=== PATIENT | female | born 1985 | race Caucasian/White ===

== ENCOUNTER 2020-11-27 04:52 | Inpatient (IN) | payer OTHER, SELFPAY ==
[2020-11-27] VITALS (74 sets, daily range): BP systolic 55–133; BP diastolic 36–90; PULSE 57–111; RESP 16–17; TEMP 36.7–37.6; O2SAT 95–100; BMI 46.1
[2020-11-27] MEDS: LACTATED RINGERS 1,000 ML 125 ML IV CONT ×3 (05:45→12:05)
[2020-11-27] MEDS: OXYTOCIN 30 UNITS/NS 500 ML 30 UNITS/500 ML BAG IV CONT (05:45)
--- NOTE | 2020-11-27 05:49 | LDADM ---
This patient, Tressa Vivar, was admitted to Labor/Delivery/Recovery 108 on 11/27/20 at 04:52. Plans for labor, pain management and were discussed with patient. Patient/family oriented to hospital policies and general routines including ID bracelet, bed and alarms, visiting hours, pain management, procedures, bathroom and other care routines, personal items, smoking policy, room service/diet and guest tray routines, security routines, and visiting hours. Patient/Family are encouraged to report perceived risks to care and to ask questions if they do not understand what they are told or what they should do. See OBIX for further documentation.
[2020-11-27 06:00] LABS: Basophils Percent Auto 0.2 % (0.2-1.2); Eosinophils Absolute Auto 0.1 K/mm3 (0-0.3); Eosinophils Percent Auto 0.6 % (0-4.4); Hemoglobin 11.5 g/dL (12.0-15.0); Immature Granulocyte Absolute 0.13 K/mm3 (0.00-0.031); Immature Granulocyte Percent A 1.2 % (0-0.5); Lymphocytes Absolute Auto 1.68 K/mm3 (0.9-3.2); Lymphocytes Percent Auto 15.2 % (18.3-44.2); Mean Corpuscular HGB Conc 32.9 g/dl (32-36); Mean Corpuscular Hemoglobin 27.8 pg (26-34); Mean Corpuscular Volume 84.5 fl (80-100); Mean Platelet Volume 8.9 fl (7.4-10.4); Monocytes Absolute Auto 0.5 K/mm3 (0.1-0.6); Monocytes Percent Auto 4.6 % (2.6-8.5); Neutrophils Absolute Auto 8.6 K/mm3 (1.3-6.7); Neutrophils Percent Auto 78.2 % (45.5-73.1); Platelet Count Result 226 k/mm3 (150-375); Red Blood Count 4.14 M/mm3 (4.2-5.4); Red Cell Distribution Width 13.4 % (11.5-14.5)
--- NOTE | 2020-11-27 07:21 | WPDANESEPP ---
Anes - Eval Pre Procedure Procedure: Labor epidural Date/Time: 11/27/20 07:21 Surgeon: Diamond Preop Diagnosis: pain during labor Pre Op Diagnosis: Induction of Labor Patient Data Age: 35 Gender: F Height: 1.63 m Weight: 122 kg Last Vital Signs Temp 36.9 C 11/27/20 05:45 Pulse 73 11/27/20 07:00 BP 117/65 11/27/20 07:00 Allergies Allergy/AdvReac Type Severity Reaction Status Date / Time No Known Allergies Allergy Unverified 05/28/19 13:13 Home Medications Medication Instructions Recorded Confirmed Type PNV cmb#95-ferrous fumarate-FA 1 tablet PO DAILY 11/02/20 11/27/20 History [] ergocalciferol (vitamin D2) 1,250 mcg PO WEEKLY 11/02/20 11/27/20 History [Vitamin D2] Laboratory Tests 11/27/20 11/27/20 05:33 05:33 WBC 11.0 K/mm3 H K/mm3 (4.5-10.0) RBC 4.14 M/mm3 L M/mm3 (4.2-5.4) Hgb 11.5 g/dL L g/dL (12.0-15.0) Hct 35.0 % L % (37.0-47.0) MCV 84.5 fl fl (80-100) MCH 27.8 pg pg (26-34) MCHC 32.9 g/dl g/dl (32-36) RDW 13.4 % % (11.5-14.5) Plt Count 226 k/mm3 k/mm3 (150-375) MPV 8.9 fl fl (7.4-10.4) Immature Gran % (Auto) 1.2 % H % (0-0.5) Neut % (Auto) 78.2 % H % (45.5-73.1) Lymph % (Auto) 15.2 % L % (18.3-44.2) [place] % (Auto) 4.6 % % (2.6-8.5) Eos % (Auto) 0.6 % % (0-4.4) Baso % (Auto) 0.2 % % (0.2-1.2) Lymph # (Auto) 1.68 K/mm3 K/mm3 (0.9-3.2) [place] # (Auto) 0.5 K/mm3 K/mm3 (0.1-0.6) Eos # (Auto) 0.1 K/mm3 K/mm3 (0-0.3) Baso # (Auto) 0.0 K/mm3 K/mm3 (0.0-0.1) Abs Immat Gran (auto) 0.13 K/mm3 H K/mm3 (0.00-0.031) Absolute Neuts (auto) 8.6 K/mm3 H K/mm3 (1.3-6.7) Absolute Nucleated RBC 0.0 K/mm3 K/mm3 (0.0-0.012) Nucleated RBC % 0.0 % % (0.0-0.2) RPR Pending Patient hx anesthesia problems: none Family hx anesthesia problems: none PMFSH Past Medical History Medical History (Updated 11/27/20 @ 07:22 by Zoraida Mercer CRNA) IUP (intrauterine ), incidental Morbid obesity with BMI of 45.0-49.9, adult Family History Family History (Updated 11/02/20 @ 12:38 by Paris Corado RN) Father Cancer Sibling Diabetes type I Social History Social History Smoking status: Never smoker Substance use: never Gender identity (if verbalized by the patient): Female Spiritual care concerns: No Exam Day of Procedure 11/27/20 07:21
--- NOTE | 2020-11-27 10:41 | WPDOBADMIT ---
Obstetrics - Admit Note Admission Note: AROM clear fluid 3//-2 clear fluid. record reviewed. No pertinent additions to the history and/or any subsequent changes in the physical findings that are not consistent with the expected course of the were found. Additions to the history and/or subsequent changes in the physical findings follow. None.
--- NOTE | 2020-11-27 11:42 | WPDANESEPP ---
Anes - Eval Pre Procedure Procedure: labor pain Date/Time: 11/27/20 11:42 Surgeon: santiago Preop Diagnosis: labor pain Pre Op Diagnosis: Induction of Labor Patient Data Age: 35 Gender: F Height: 5 ft 4 in Weight: 122 kg Last Vital Signs Temp 36.9 C 11/27/20 07:30 Pulse 70 11/27/20 11:41 BP 96/50 L 11/27/20 11:41 Pulse Ox 100 11/27/20 11:42 Allergies Allergy/AdvReac Type Severity Reaction Status Date / Time No Known Allergies Allergy Unverified 05/28/19 13:13 Home Medications Medication Instructions Recorded Confirmed Type PNV cmb#95-ferrous fumarate-FA 1 tablet PO DAILY 11/02/20 11/27/20 History [] ergocalciferol (vitamin D2) 1,250 mcg PO WEEKLY 11/02/20 11/27/20 History [Vitamin D2] Laboratory Tests 11/27/20 11/27/20 11/27/20 05:33 05:33 05:33 WBC 11.0 K/mm3 H K/mm3 (4.5-10.0) RBC 4.14 M/mm3 L M/mm3 (4.2-5.4) Hgb 11.5 g/dL L g/dL (12.0-15.0) Hct 35.0 % L % (37.0-47.0) MCV 84.5 fl fl (80-100) MCH 27.8 pg pg (26-34) MCHC 32.9 g/dl g/dl (32-36) RDW 13.4 % % (11.5-14.5) Plt Count 226 k/mm3 k/mm3 (150-375) MPV 8.9 fl fl (7.4-10.4) Immature Gran % (Auto) 1.2 % H % (0-0.5) Neut % (Auto) 78.2 % H % (45.5-73.1) Lymph % (Auto) 15.2 % L % (18.3-44.2) [place] % (Auto) 4.6 % % (2.6-8.5) Eos % (Auto) 0.6 % % (0-4.4) Baso % (Auto) 0.2 % % (0.2-1.2) Lymph # (Auto) 1.68 K/mm3 K/mm3 (0.9-3.2) [place] # (Auto) 0.5 K/mm3 K/mm3 (0.1-0.6) Eos # (Auto) 0.1 K/mm3 K/mm3 (0-0.3) Baso # (Auto) 0.0 K/mm3 K/mm3 (0.0-0.1) Abs Immat Gran (auto) 0.13 K/mm3 H K/mm3 (0.00-0.031) Absolute Neuts (auto) 8.6 K/mm3 H K/mm3 (1.3-6.7) Absolute Nucleated RBC 0.0 K/mm3 K/mm3 (0.0-0.012) Nucleated RBC % 0.0 % % (0.0-0.2) RPR Pending Blood Type B Positive Antibody Screen Negative : gestational age () Patient hx anesthesia problems: none Family hx anesthesia problems: none [facility] Past Medical History Medical History IUP (intrauterine ), incidental Morbid obesity with BMI of 45.0-49.9, adult Family History Family History Father Cancer Sibling Diabetes type I Social History Social History Smoking status: Never smoker Substance use: never Gender identity (if verbalized by the patient): Female Spiritual care concerns: No Exam Day of Procedure 11/27/20 11:42 Patient weight: morbidly obese Heart: regular rate and rhythm Lungs: normal air movement Airway: Mallampati scale class II Neurological: alert and oriented
[2020-11-27 13:47] LABS: Rapid Plasma Reagin Non-Reactive (NonReactive)
--- NOTE | 2020-11-27 15:42 | P.PCNOB_ITS ---
OB - Delivery Note Procedure Delivery date: 11/27/20 Procedure: events: Labor Induction Intrapartal events: None Induction method: AROM and per pitocin protocol Delivery monitor: external FHT and external uterine Route of delivery: Laceration Description: Vaginal - 1st Degree Specimen: No Quantitative Blood Loss (ml): 200 Anesthesia type: Epidural Disposition: floor [place] Baby Date of : 11/27/20 Time of : 15:24 Weeks of gestation at delivery: 39 gender: Female Weight (pounds): 7 Weight (ounces): 8 presentation: vertex position: Left Occiput Anterior Placenta delivery description: Spontaneous cord vessel description: 3 Vessels and Nuchal Cord score one minute: 8 score five minutes: 9
[2020-11-27] MEDS: OXYTOCIN 30 UNITS/NS 500 ML 30 UNITS/500 ML BAG 125 UNITS IV CONT (15:56)
[2020-11-27] MEDS: BENZOCAINE 20% AER SPR (*SP) 56 GM CAN 1 SPRAY TOPICAL (17:41)
[2020-11-27] MEDS: WITCH HAZEL 40 PADS 1 PAD TOPICAL (17:41)
--- NOTE | 2020-11-28 01:45 | OBPPTRN ---
Patient transferred to post room #291 via wheelchair with in crib. Support person present. Oriented to unit, room, information board, rooming in, admission packet and security measures. Patient verbalizes understanding.
[2020-11-28 04:30] VITALS: BP 131/74; PULSE 70; RESP 17; TEMP 36.9
[2020-11-28] MEDS: IBUPROFEN 600 MG TABLET PO ×2 (04:31→11:28)
[2020-11-28 05:23] LABS: Hematocrit 32.3 % (37.0-47.0); Hemoglobin 10.8 g/dL (12.0-15.0)
[2020-11-28 07:30] VITALS: BP 140/82; PULSE 75; RESP 14; TEMP 36.3; O2SAT 99
--- NOTE | 2020-11-28 07:44 | WPDANLDPN2 ---
Anes-Prog Note L&D Date/Time: 11/28/20 07:44 Comfortable throughout: labor and delivery Neuraxial method: epidural Epidural/Spinal procedure site: clean & non-tender Neuro status: Neuro function grossly intact. Cardiovascular status: normal Respiratory status: normal Airway patency: baseline Mental status: baseline Post-Op hydration status: normal Vital Signs: Last Vital Signs Temp 36.9 C 11/28/20 04:30 Pulse 70 11/28/20 04:30 Resp 17 11/28/20 04:30 BP 131/74 11/28/20 04:30 Pulse Ox 98 11/27/20 13:01 Pain score (VAS): 0 I/O: Intake & Output 11/27/20 11/27/20 11/28/20 15:59 23:59 07:59 Intake Total 3000 500 Output Total 82 Balance 3000 418 Post-procedural complaints: none Patient feedback: Patient satisfied with anesthetic care.
[2020-11-28 09:00] VITALS: PULSE 64; RESP 16; O2SAT 100
--- NOTE | 2020-11-28 11:42 | PM.OBPNVD ---
OB - PN: Subj Subjective Date/time seen: 11/28/20 11:42 doing well no complaints bleeding light OB - PN: Obj Data Labs CBC & Chem 7: 11/28/20 04:42 Labs: Laboratory Results - last 24 hr 11/27/20 11/28/20 05:33 04:42 Hgb 10.8 L Hct 32.3 L RPR Non-reactive OB - PN A/P Assessment and Plan (1) (normal spontaneous vaginal delivery): Code(s): O80 - Encounter for full-term uncomplicated delivery Status: Acute Assessment and Plan: continue with pp care. Time Spent With Patient Time: Total time spent is greater than 50% in coordination of care (as documented) at patient's floor/unit and/or counseling patient: Exam GI: Other: ff below umbilicus
[2020-11-28 13:00] VITALS: BP 129/74; PULSE 64; RESP 16; TEMP 36.9; O2SAT 100
[2020-11-28 13:15] VITALS: PULSE 64; RESP 16; O2SAT 100
--- NOTE | 2020-11-28 13:52 | PC.NURSE ---
Patient viewed the discharge video Mother & Baby Care, The First Two Weeks . Patient was given the opportunity and encouraged to ask questions. Patient verbalized understanding of information shared and has been given the mother/baby guide for home reference.
[2020-11-29 08:56] VITALS: BP 123/70; PULSE 64; RESP 16; TEMP 36.6; O2SAT 100
--- NOTE | 2020-12-14 09:33 | P.DS_ITS ---
DS: Admitting Diagnosis Admitting Diagnosis Admitting Diagnosis: induction of labor DS: Discharge Diagnosis Discharge Diagnosis (1) (normal spontaneous vaginal delivery): Code(s): O80 - Encounter for full-term uncomplicated delivery Status: Acute OB - DS: Summary OB Procedures : NST and Ultrasound OB Procedures Intrapartum: Spontaneous Vag Delivery OB Procedures: : None Peripartum Data Infant Delivery Method: Natural Vaginal complications: none Time Spent with Patient Time attestation: Total time spent providing and/or coordinating discharge services: Discharge Plan Discharge Attending physician on discharge: Cornel Fields Discharging Clinician: Cornel Fields Patient Disposition: Home, Self-Care Activity: pelvic rest Diet: regular Discharge Instructions: Education: Mom and Baby Guide Given to: Mother Follow-Up: Call your delivering provider's office for an appointment to be seen in: Call for appointment [facility]. Appointment Date/Time: Sunday, November 29, 2020 at 9:00 a.m. What to expect at your follow-up visit: Blood Pressure Check Physical Assessment Call [phone] if you are unable to keep your appointment time. BREAST CARE: * Wear a snug supportive bra. * For engorgement discomfort: Bottle Feeding: * May apply ice packs EPISIOTOMY/PERINEAL CARE: * Until bleeding stops, use your mihai bottle after urinating * Change your pad frequently throughout the day * You may take sitz baths several times a day (fill your bathtub with warm water and soak for 20 minutes.) Do NOT bathe in the water * No tub baths until seen by your physician - You may shower ACTIVITY: * Rest as much as possible. * Do not exercise or lift anything heavier than your baby (such as laundry or other children.) * Avoid stairs or driving as much as possible. * Do not put anything into the vagina. No douching, tampons, or sexual activity until seen by physician. NOTIFY PHYSICIAN IF YOU HAVE ANY QUESTIONS OR IF ANY OF THE FOLLOWING SYMPTOMS OCCUR: * If your vaginal bleeding becomes foul smelling. * If your vaginal bleeding becomes more heavy than a period or if your bleeding changes from pink to bright red. However, you may pass an occasional walnut- sized clot once or twice for the first week . * If you experience a sharp, shooting pain in you calves. DIET: * Eat regular, well-balanced meals. * Drink plenty of fluids daily. Stand Alone Forms: General Discharge Information Follow-up/Referrals: Cornel Fields MD [Physician] - Discharge Medications: Continued ergocalciferol (vitamin D2) [Vitamin D2] 1,250 mcg (50,000 unit) Capsule 1,250 mcg PO WEEKLY RF: 0 PNV cmb#95-ferrous fumarate-FA [] 28 mg iron- 800 mcg Tablet 1 tablet PO DAILY RF: 0 Date of admission: 11/27/20 04:52 Primary Care Provider: Cata,Maynor Roman Admitting Provider: Cornel Fields Attending physician on admission: Cornel Fields Condition: Stable
== END 2020-11-28 19:04 | disposition home or self-care (01) | DRG 807 ==
LOC: ANHLDR 05:00 → ANHOB2 19:07
PROVIDERS: Admitting Provider Obstetrics & Gynecology; PCP Family Medicine; Visit Provider Obstetrics & Gynecology
DX: O69.81X0 Labor and delivery complicated by cord around neck, without compression, not applicable or unspecified (principal); Z37.0 Single live birth; Z3A.39 39 weeks gestation of pregnancy; O36.8330 Maternal care for abnormalities of the fetal heart rate or rhythm, third trimester, not applicable or unspecified; O99.214 Obesity complicating childbirth; E66.01 Morbid (severe) obesity due to excess calories; O70.0 First degree perineal laceration during delivery
CPT/HCPCS: 36415; 85014; 85018; 85025; 86592; 86850; 86900; 86901; A9270; J2590; J2795; J7120

== ENCOUNTER 2021-09-16 16:25 | Emergency (ER) | payer OTHER, SELFPAY ==
[2021-09-16 16:36] VITALS: BP 143/79; PULSE 60; RESP 18; TEMP 36.8; O2SAT 100
--- NOTE | 2021-09-16 17:14 | ED.DIZZY ---
HPI - Dizziness General Chief Complaint: Dizziness Stated Complaint: dizziness Source: patient and RN notes reviewed Limitations: no limitations History of Present Illness HPI Narrative: The vaccinated patient a non-smoker/nondrinker, presents with vertigo. Patient states she has 1/2-week history upon awakening on Wednesday of the world tilting with movement. Is slightly improved yesterday but has not changed much throughout the day. No head?sinus-ear pains, fever, URI?sinusitis, cough, head injury, nausea/vomiting, tinnitus, hearing loss, speech?visual changes, lateralizing weakness, FMH meniere's, not associated with migraine, menses now. No loss of taste/smell, CP, S OB, Related Data Allergies Allergy/AdvReac Type Severity Reaction Status Date / Time No Known Allergies Allergy Verified 09/16/21 16:53 Review of Systems Review of Systems: General/Constitutional: No weight loss,fever Eyes: N0: Redness,discharge Ears/Nose/Throat: No: Epistaxis,ear discharge Respiratory: Denies: Hemoptysis Gastrointestinal: No Vomiting, Bleeding-rectal Skin: No Lumps, eruption Neurologic: No Focal Weakness,Sz Hematologic: Denies: Petechiae/Purpura Psychiatric: No: Suicida ideationl All Other Systems: Reviewed and Negative PMFSH Past Medical History Medical History (Updated 09/16/21 @ 17:44 by Thomas Quevedo MD) IUP (intrauterine ), incidental Morbid obesity with BMI of 45.0-49.9, adult (normal spontaneous vaginal delivery) Family History Family History Father Cancer Sibling Diabetes type I Social History Social History Smoking status: Never smoker Substance use: never Gender identity (if verbalized by the patient): Female Spiritual care concerns: No Comments At time of signature, agree with nursing past medical, surgical, social and family history. There is no relevant family history pertinent to the presenting complaint Exam Narrative: General Appearance: Well nourished/obese, No distress EYE: PERRLA, Conjunctiva clear, EOMI, no nystagmus Neurological: A&O x3, CN II-X intact, normal FTN, HTS; reflexes 2+ Ears: External ear normal, TMs benign Nose: Normal nose Mouth/Throat: Normal appearing, Normal lips,Neck: Supple Respiratory: Airway patent, No respiratory distress Cardiovascular: RRR Abdomen: Soft, Non-tender, Musculoskeletal: Full ROM Skin: Warm, Dry Psychiatric: Normal mood, Normal affect Course Vital Signs Vital signs: Vital Signs Temperature 98.3 F 09/16/21 16:36 Pulse Rate 60 09/16/21 16:36 Respiratory Rate 18 09/16/21 16:36 Blood Pressure 143/79 H 09/16/21 16:36 Pulse Oximetry 100 09/16/21 16:36 Temperature 98.3 F 09/16/21 16:36 Pulse Rate 60 09/16/21 16:36 Respiratory Rate 18 09/16/21 16:36 Blood Pressure 143/79 H 09/16/21 16:36 Pulse Oximetry 100 09/16/21 16:36 Discharge Plan Discharge Clinical Impression: Positional vertigo Patient Disposition: Home, Self-Care Condition: Stable Instructions: Vertigo (ED) Additional Instructions: See your PMD in follow-up Prescriptions: New meclizine 12.5 mg tablet 12.5 - 25 mg PO BID PRN (Reason: dizziness) Qty: 20 RF: 1 Follow-up/Referrals: Cata,Maynor Roman MD [Primary Care Provider] -
== END 2021-09-16 17:50 | disposition home or self-care (01) ==
PROVIDERS: Emergency Provider Emergency Medicine; PCP Family Medicine
DX: R42 Dizziness and giddiness (principal); E66.01 Morbid (severe) obesity due to excess calories; Z68.41 Body mass index [BMI] 40.0-44.9, adult
CPT/HCPCS: 99213; G0463